=== PATIENT | female | born 1995 | race Caucasian/White ===

== ENCOUNTER 2022-10-24 08:40 | Outpatient (CLI) | payer BC, SELFPAY ==
--- NOTE | 2022-10-24 09:00 | USCV_ITS ---
Mima Blunt Age: 27 Gender: F : 1995 Exam Date: 10/24/2022 09:01 Ordering Phys: Anna Begum MD Technologist: CT Exam Location: [facility] [place]_ Indication: memory problems, dizziness Risk Factors: Previous Vascular Surgery: Right Brachial BP: / Left Brachial BP: / Right Left Velocity (cm/s) Spectral Plaque Velocity (cm/s) Spectral Plaque Syst/Diast Broadening Syst/Diast Broadening 100.90/27.90 Prox CCA 140.70/ 34.20 103.80/28.80 Mid CCA 95.00 / 36.00 94.90/ 31.30 Distal CCA 97.20 / 33.90 59.00/ 29.10 Prox ICA 78.60 / 42.60 81.30/ 40.60 Mid ICA 83.30 / 37.80 96.70/ 43.90 Distal ICA 102.20/ 48.30 77.00 ECA 71.00 0.93 ICA/CCA 0.73 Antegrade Vertebral Antegrade 37.60/ 14.50 cm/s 56.50/ 23.70 cm/s Subclavian 102.5 172.2 0 0 FINDINGS Comparison: none available. No significant elevation of systolic or diastolic velocities. Waveforms are normal. No significant amount of calcified plaque or intimal thickening identified. Left vertebral artery: antegrade blood flow. Right vertebral artery: antegrade blood flow. CONCLUSIONS Normal carotid doppler ultrasound. Dr. Jovana Valentine DO (Electronically Signed) Final Date: 24 October 2022 10:24 S
== END 2022-10-24 08:41 | disposition home or self-care (01) ==
LOC: RAD 08:47
PROVIDERS: Visit Provider Specialist
DX: R55 Syncope and collapse (principal)
CPT/HCPCS: 93880